=== PATIENT | female | born 1985 | race Caucasian/White ===

== ENCOUNTER 2019-07-29 08:07 | Outpatient (CLI) | payer BC, SELFPAY ==
--- NOTE | 2019-07-29 08:30 | XR_ITS ---
WS: [id number] XR KUB [id number] REASON FOR EXAM: RIGHT RENAL CALCULUS FINDINGS: In the region of the right kidney is a cylindrical calcified lesion measures 2.59 cm and is consistent with a staghorn calculus. Scoliosis convex to the left is noted. There is fecal stasis throughout the colon. XR/XR KUB 54202 IMPRESSION: Prominent calcium deposit right kidney suggesting a staghorn calculus. Along the distal lateral right pelvis is a calcified density also does not appe ar to be in the ureter.
== END 2019-07-29 08:08 | disposition home or self-care (01) ==
LOC: RAD 08:10
PROVIDERS: PCP Nurse Practitioner Family; Visit Provider Urology
DX: N20.0 Calculus of kidney (principal)
CPT/HCPCS: 74018

== ENCOUNTER 2019-07-29 10:57 | Outpatient (CLI) | payer BC, SELFPAY ==
--- NOTE | 2019-07-29 11:11 | CT_ITS ---
WS: [id number] CT ABDOMEN AND PELVIS NONCONTRAST HISTORY: UROLITHIASIS TECHNIQUE: Imaging performed through the abdomen and pelvis. Coronal and sagittal reformats are submi tted. All CT scans at [facility] use at least one of these dose optimization techniques: automated exposure control; mA and/or kV adjustment per patient size (includes targeted exams where d ose is matched to clinical indication); or iterative reconstruction. DLP: 989.9 mGycm COMPARISON: None available. Lower thorax: Lung bases are clear. No hiatal hernia. Liver: Normal, no mass or intrahepatic dilatation. Gallbladder: Unremarkable. Pancreas: Normal. Spleen: Normal. Adrenal glands: Normal. Right kidney: There is a large ovoid calcification in the RIGHT renal pelvis measuring 13 x 21 mm. Ov erall there is mild thinning of the cortex of the RIGHT kidney. There is low attenuation surrounding this large central calcification. No definite obstruction. Suspect there could be a duplicated collec ting system as the RIGHT kidney is elongated extending over a length of 12.9 cm. Left kidney: Normal size with no stones, mass or atrophy. Abdominal aorta and IVC are unremarkable. No free fluid, intraperitoneal air or significant lymphadenopathy. GI tract: Mild diffuse constipation. Appendix is incompletely visualized but does appear to contains appendicoliths. No acute inflammation. Abdominal wall: Intact. Pelvis: There are large clustered calcifications measuring 12 mm in the RIGHT pelvis. Cannot determin e their exact location. If these are within the ureter should be significant hydronephrosis. Suspect these could be vascular calcifications. Osseous structures: Unremarkable. CT/CT kidney stone [id number] IMPRESSION: 1. Large calcification in the central RIGHT renal pelvis measures 13 x 21 mm. There is adjacent low-attenuation surrounding the calcification. Correlate for possible emphysematous hilar nephritis. 2. There may be a duplicated collecting system RIGHT kidney. 3. Cluster of calcifications in the RIGHT adnexa. Cannot determine exact locat ion. If these are calcifications in the ureter I would've expected there to be severe hydronephrosis. For confirmation CT evaluation with contrast and delayed imaging may be helpful.
== END 2019-07-29 10:58 | disposition home or self-care (01) ==
LOC: RADWPI 10:59
PROVIDERS: PCP Nurse Practitioner Family; Visit Provider Urology
DX: N20.9 Urinary calculus, unspecified (principal); N28.89 Other specified disorders of kidney and ureter
CPT/HCPCS: 74176; 81001

== ENCOUNTER 2019-07-29 12:16 | Day surgery (SDC) | payer BC, SELFPAY ==
[2019-07-29 13:29] VITALS: BMI 18.0
[2019-07-29 13:32] VITALS: BP 109/64; PULSE 83; RESP 18; TEMP 37.1; O2SAT 99
--- NOTE | 2019-07-29 14:03 | ANES.PREANE2 ---
Pre-Anesthetic Assessment Pre-Anesthetic Assessment: Height/Weight: Height 1.7 m Weight 52.163 kg Temp Pulse Resp BP Pulse Ox 98.8 F 83 18 109/64 99 07/29/19 13:32 07/29/19 13:32 07/29/19 13:32 07/29/19 13:32 07/29/19 13:32 Preop Diagnosis: Right renal and ureteral calculi Proposed Procedure: Operation Date: 07/29/19 14:45 Proposed Procedures p Cystoscopy 47590 80235 36350 N20.2(Not Applicable) - MD alma delia Velázquez Right Retrograde(Right) - MD alma delia Velázquez Flexible Ureteroscopy(Not Applicable) - MD alma delia Velázquez Laser Lithotripsy(Not Applicable) - MD alma delia Velázquez ESWL(Right) - Charan Polo MD Familial anesthetic complications: none Was Beta Sol taken within 24 hours: N/A Last intake: Intake Last Liquid Date 07/29/19 Last Liquid Time 10:00 Last Solid Date 07/28/19 Last Solid Time 19:00 Social: Social History: Tobacco and No alcohol Packs per day: 0.5 ppd Exam: Pre-Anes Outpt Exam: alert, oriented x 3, clear to auscultation bilaterally and regular rate & rhythm Airway: Cervical ROM: WNL MP: 2 Additional comments: partial top plate Pulmonary: Pulmonary: None reported CV/HEM: CV/HEM: None reported : : None reported Hepatic: Hepatic: None reported GI: GI: None reported Metabolic: Metabolic: None reported Musc/skel: Musc/skel: None reported Neuropsych: Neuropsych: None reported Anesthetic Plan: ASA status: 1 Anesthesia: General Risk of > 500 ml blood loss (7ml/kg in children): No PFSH Anesthesia PFSH: Social History Smoking and tobacco status: current every day smoker Alcohol intake: never Marital status: Current occupational status: employed History of recent travel: No Data Anesthesia Cardiac Studies: No Data to Display
[2019-07-29] MEDS: sodium chloride 0.9% 500 ML 999 ML IV (14:51)
--- NOTE | 2019-07-29 14:51 | W.PM.OPSUD ---
Surgery/Procedure H&P Update DATE OF PROCEDURE: July 29, 2019 DATE H&P PERFORMED: 07/29/19 H&P UPDATE INFORMATION: I have reviewed H&P completed within last 30 days, I have examined patient prior to procedure, No changes to prior documentation and H&P is in [facility] EMR on date indicated PREOP DIAGNOSIS: Right renal and ureteral calculi PLANNED PROCEDURE: Operation Date: 07/29/19 14:45 Proposed Procedures p Cystoscopy 11396 [id number] 76219 N20.2(Not Applicable) - MD alma delia Velázquez Right Retrograde(Right) - MD alma delia Velázquez Flexible Ureteroscopy(Not Applicable) - MD alma delia Velázquez Laser Lithotripsy(Not Applicable) - MD alma delia Velázquez ESWL(Right) - Charan Polo MD
[2019-07-29] MEDS: levofloxacin-dextrose 5 % 500 MG/100 ML PREMIX 100 MG IV (15:08)
--- NOTE | 2019-07-29 16:10 | PM.OP ---
Operative Report Date of procedure: July 29, 2019 Pre-op Diagnosis: Right renal and ureteral calculi Post-op diagnosis: same Procedure Done: 1. Cystoscopy with ureteroscopy, laser lithotripsy and stent to RIGHT DISTAL URETERAL stones x2 2. Right retrograde ureteropyelogram 3. Extracorporeal shockwave lithotripsy to large right renal calculus Pathology: other (Stone fragments) Surgeon: Christ Ophthalmology Technician: [place] Anesthesia: General Estimated blood loss: Minimal Urine output: Not measured Complications: None Findings: 1. There was a single ureter to the abnormally shaped kidney. No duplicated system 2. The 2 stones seen on the CT scan located in the right distal ureter were in the expected position. They were treated with ureteroscopic laser lithotripsy and the all the major fragments were removed. 3. The large stone that was identified in the right kidney was treated with ESWL and it appeared to break up very well. Total of 2500 shocks were administered. 4. A right ureteral stent was left indwelling, 6 Colombian by 26 cm double-pigtail without string Condition: stable Disposition: PACU Brief History: Karina is a very pleasant 34-year-old white female who I evaluated for the first time today in my clinic. She presented with complaints of right renal colicky symptoms and a history of UTIs but nothing currently from an infection perspective. A KUB showed a large stone in her right kidney area and 2 calcifications suspicious for the right distal ureter. Both the calcifications distally were quite large and felt to be low chance of spontaneous passage. A renal stone protocol CT scan was performed this morning and it confirmed the intraluminal presence of the stones in the right distal ureter and the additional large stone in the right renal collecting system. There was some atypical appearance of the right kidney more consistent with what looked to be duplication potentially. 2 ureters could not be easily seen on the CT scan though. She was admitted with plans for ureteroscopic laser lithotripsy of the right distal ureteral stones and ESWL to the larger stone in the kidney. Procedure: After urgent evaluation examination and obtaining of informed consent she was taken to the operating suite on 07/29/2019 where general anesthesia was administered without difficulty after appropriate timeout was performed, SCDs confirmed to be functioning, preoperative antibiotics administered, beta-sandrine protocol confirmed. Prepped and draped in the usual sterile fashion in dorsolithotomy position pain careful attention to avoiding pressure points. 21 Colombian cystoscope with 30 degree lens was introduced into the urethral meatus and advanced into the bladder under videoscopy. Careful inspection revealed only one ureteral orifice. An 8 Colombian cone-tipped catheter was intubated into the right ureteral orifice for right retrograde ureteropyelogram which showed the 2 stones in the right distal ureter as expected. The ureter appeared to be single with no bifurcation more proximally. The renal collecting system showed some bifid type appearance but it was all continuous. The stone was confirmed to be in the right lower pole area. A flexible tip guidewire was then advanced up the right ureter curling in the renal pelvis. The distal ureter was then dilated with a 15 Colombian 4 cm balloon with no waist. Wire was secured to the drapes as a safety wire. A 7 Colombian offset semirigid ureteroscope was advanced next the wire up the right ureter where the stones were encountered in the expected position. 3 Colombian grasping forceps was utilized to secure the more distal stone but the stone would not be easily removed and for that reason the grasper was removed and a 365 ?m homing laser fiber was utilized to fragment both stones into small enough pieces that were then removed with a combination of grasping forceps and parachute basket. Final inspection revealed no residual fragments of any consequence. Extracorporal shockwave lithotripsy of the renal calculus on the right was initiated while working on the distal stones. The stone showed early and significant fragmentation and by the completion of the procedure no large fragments could be easily identified. The initial shockwave therapy was rate of 60 and later advanced throughout the procedure to 90. Intensity was started at 1 and advanced to 4. A several minute pause was conducted after about 300 shocks. At the completion of the procedure the stone could no longer be seen in the kidney. Based on the bulk of the original stone in the kidney as well as the multiple passes of the scope distally for the 2 distal ureteral stones it was decided to leave and temporary stent in place. The cystoscope was then backloaded over the working wire and a 6 Colombian by 26 cm double-pigtail stent without string was passed over the guidewire through the cystoscope into appropriate position as confirmed via fluoroscopy and cystoscopy. The bladder was drained of the sand pieces that had flushed out of the ureter. Stent was confirmed to be working well and the procedure completed. She tolerated the procedure well without complications and was awakened in the operating room and returned to the recovery room in stable condition. PLANS: 1. Follow-up next week with KUB and likely cystoscopy with stent removal in the clinic. We did review the possibility that based on the size of the kidney stone that it may require a second treatment but given today's results I am hopeful that would not be the case.
[2019-07-29 16:16] VITALS: BP 126/75; PULSE 77; RESP 14; TEMP 36.6; O2SAT 100
[2019-07-29 16:20] VITALS: BP 118/68; PULSE 75; RESP 17; O2SAT 98
[2019-07-29 16:25] VITALS: BP 122/77; PULSE 78; RESP 16; TEMP 36.4; O2SAT 97
[2019-07-29 16:28] VITALS: BP 122/86; PULSE 73; RESP 16; TEMP 36.4; O2SAT 97
[2019-07-29 16:42] VITALS: BP 119/80; PULSE 70; RESP 16; TEMP 36.4; O2SAT 97
[2019-07-29] MEDS: iohexol 300 mg/mL 50 mL Btl (OR ONLY) XX (17:08)
[2019-08-02 16:11] LABS: Stone Source RT URETER
== END 2019-07-29 17:01 | disposition home or self-care (01) ==
PROVIDERS: PCP Nurse Practitioner Family; Visit Provider Urology
PROC: 0TJB8ZZ Inspection of Bladder, Via Natural or Artificial Opening Endoscopic (ICD-10-PCS; CPT 52000; principal; 2019-07-29 14:45)
PROC: (CPT 74420; 2019-07-29 14:45)
PROC: (CPT 50590; 2019-07-29 14:45)
PROC: (CPT 50590; 2019-07-29 14:45)
PROC: 0TJ98ZZ Inspection of Ureter, Via Natural or Artificial Opening Endoscopic (ICD-10-PCS; CPT 52351; 2019-07-29 14:45)
DX: N20.2 Calculus of kidney with calculus of ureter (principal); F17.210 Nicotine dependence, cigarettes, uncomplicated
CPT/HCPCS: 50590; 52356; 12345; 82365; 88300; C1725; C2625; J1956; J2704; J3010; J7040

== ENCOUNTER 2019-08-05 07:30 | Outpatient (CLI) | payer BC, SELFPAY ==
--- NOTE | 2019-08-05 07:36 | XR_ITS ---
WS: [id number] ABDOMEN: SUPINE FILM HISTORY: RENAL AND URETERIC CALCULUS COMPARISON: 07/29/2019 Normal bowel gas pattern. Mild LEFT convex curvature lumbar spine. Right kidney: Large ovoid 2.5 cm calcification no longer noted in the RIGHT abdomen. There is a doubl e pigtail ureteral stent placed. Proximal coil of the stent is at the disc level of L4-5. Stent may b e within the ureter. Compared to the prior CT the coil is more inferior than expected for the renal p chuy. No calcific deposits along the ureteral stent. Left kidney: No renal or ureteral stone identified. XR/XR KUB 02999 IMPRESSION: 1. Interval placement of a RIGHT ureteral stent. Proximal coil may be in the p roximal ureter. 2. Previously described 2.5 cm RIGHT renal calcification or fragmentations are no longer identified.
== END 2019-08-05 07:31 | disposition home or self-care (01) ==
PROVIDERS: PCP Nurse Practitioner Family; Visit Provider Urology
DX: N20.2 Calculus of kidney with calculus of ureter (principal); Z96.0 Presence of urogenital implants
CPT/HCPCS: 74018; 81001

== ENCOUNTER 2019-09-16 09:11 | Outpatient (CLI) | payer BC, SELFPAY ==
--- NOTE | 2019-09-16 09:00 | XRR_ITS ---
PROCEDURE INFORMATION: Exam: XR Abdomen, 1 View Exam date and time: 09/16/2019 9:27 AM Age: 34 years old Clinical indication: Condition or disease; Kidney or ureter condition; Calculus (stone) in kidney; Prior surgery; Surgery type: Tubal ligation, date not provided; Additional info: Kidney stones TECHNIQUE: Imaging protocol: XR of the abdomen. Views: Frontal supine view of the abdomen. 1 View. COMPARISON: No relevant prior studies available. FINDINGS: Gastrointestinal tract: bowel gas pattern is nonspecific. Air filled large bowel including distal rectal gas. Scattered loops of air filled small bowel none of which are dilated. Large amount of stool throughout the large bowel. Organs: No appreciable renal calculus. No calcifications are seen overlying the renal outlines or the expected course of the right or left ureters. No suspicious calcifications within the pelvis. Bones/joints: Unremarkable. XR/XR KUB [id number] IMPRESSION: 1. Bowel gas pattern is nonspecific. Air filled large bowel including distal rectal gas. Scattered loops of air filled small bowel none of which are dilated. 2. Large amount of stool throughout the large bowel.
== END 2019-09-16 09:12 | disposition home or self-care (01) ==
LOC: RAD 09:15
PROVIDERS: PCP Nurse Practitioner Family; Visit Provider Urology
DX: N20.0 Calculus of kidney (principal); N39.0 Urinary tract infection, site not specified
CPT/HCPCS: 74018; 80053; 81001; 87077; 87086; 87186